=== PATIENT | male | born 1990 | race Two or more races ===

== ENCOUNTER 2021-11-30 14:26 | Emergency (ER) | payer OTHER ==
[~2021-11-30] VITALS: Ht 162.6 cm; Wt 89.8 kg
--- NOTE | 2021-11-30 15:25 | NUR ---
BIBS FROM HOME. PT STATED HAVING NAUSEA AND VOMMTING SINCE YESTERDAY, WITH EPIGASTRIC PAIN. 9/10 PAIN SCALE. A/O X4. STABLE ON ROOM AIR. SEEN BY MD. WARM BLANKET PROVIDED.
[2021-11-30] MEDS ORDERED: ONDANSETRON HCL/PF 4 MG/2 ML VIAL IVP ONE (15:30)
[2021-11-30] MEDS ORDERED: IV NS 0.9% 1,000 ML BAG IV ONE (15:30)
--- NOTE | 2021-11-30 16:00 | NUR ---
R HAND #[id number] INSERTED. IV NS GIVEN. ZOFRAN GIVEN ORDERED.
[2021-11-30 16:01] LABS: BASOPHILS % (AUTO) 0.4 % (0.0-2.0); EOSINOPHILS % (AUTO) 0.4 % (0.0-6.0); HEMATOCRIT 44 % (39-51); HEMOGLOBIN 14.7 g/dL (13.5-17.5); LYMPHOCYTES # (AUTO) 1.6 K/uL (0.8-4.8); LYMPHOCYTES % (AUTO) 18.8 % (20.0-44.0); MEAN CORPUSCULAR HGB CONC 33 g/dl (31.0-36.0); MEAN CORPUSCULAR VOLUME 89 fL (80-96); MONOCYTES # (AUTO) 0.4 K/uL (0.1-1.30); NEUTROPHILS # (AUTO) 6.6 K/uL (1.8-8.9); NEUTROPHILS % (AUTO) 75.4 % (43.0-81.0); PLATELET COUNT (AUTO) 236 K/uL (150-450); RED BLOOD CELL COUNT(AUTO) 4.96 MIL/uL (4.5-6.0); WHITE BLOOD COUNT (AUTO) 8.7 K/uL (4.3-11.0)
[2021-11-30] MEDS ORDERED: ONDANSETRON HCL/PF 4 MG/2 ML VIAL ONE (16:06)
[2021-11-30 16:10] LABS: CALCIUM, SERUM 8.9 mg/dL (8.5-10.1); CREATININE 0.7 mg/dL (0.6-1.3); POTASSIUM 3.8 mmol/L (3.5-5.1)
[2021-11-30 16:16] LABS: ALBUMIN 3.4 g/dL (3.4-5.0); BILIRUBIN,DIRECT 0.2 mg/dL (0.0-0.2); BILIRUBIN,TOTAL 1.3 mg/dL (0.2-1.0); TOTAL PROTEIN, SERUM 6.5 g/dL (6.4-8.2)
--- NOTE | 2021-11-30 16:30 | NUR ---
CT ABD DONE
[2021-11-30] MEDS ORDERED: SULF1TAB48 PO (17:21)
[2021-11-30] MEDS ORDERED: ONDA4TAB5 PO (17:21)
--- NOTE | 2021-11-30 17:40 | NUR ---
Patient discharged to home in stable condition. Written and verbal after care instructions given. Patient verbalizes understanding of instruction.
[2021-11-30 18:04] VITALS: BP 119/73
== END 2021-11-30 18:05 | disposition home or self-care (01) ==
LOC: ER 14:42
DX: A04.9 Bacterial intestinal infection, unspecified (principal); Z79.899 Other long term (current) drug therapy
CPT/HCPCS: 36415; 74176; 80048; 80076; 83690; 85025; 96361; 96374; 99284; J2405; J7030